=== PATIENT | female | born 1945 | race Caucasian/White ===

== ENCOUNTER → 2017-10-02 | Outpatient (CLI) | payer MEDICARE, OTHER ==
--- NOTE | 2017-10-02 13:49 | REPMRS ---
Patient History The patient states she had a clinical breast exam in 07/07 Patient is postmenopausal and has history of other cancer at age 59. No known family history of cancer. Benign cyst aspiration. Took hormonal contraceptives for 15 years. Took unspecified hormones for 1 year. Digital Woman Screen Mammo: October 02, 2017 - Exam #: [id number] Bilateral CC and MLO view(s) were taken. Technologist: Aylin Teague, Technologist Prior study comparison: July 19, 2016, digital woman screen mammo performed at [facility]. June 14, 2015, digital woman screen mammo performed at [facility]. FINDINGS: There are scattered fibroglandular densities. There is a stable nodular opacity projecting in the upper outer quadrant on the right unchanged from September 22, 2013 prior radiographs. This measures 13 mm. There has been no change in the appearance of the mammogram from the prior studies. There is a mild amount of scattered fibroglandular density which is fairly symmetric. There is no interval development of dominant mass, architectural distortion, or clustered microcalcification suggestive of malignancy. ASSESSMENT: BI-RADS/ACR category 2 mammogram. Benign finding(s). Recommendation Routine screening mammogram in 1 year (for women over age 40). This mammogram was interpreted with the aid of an FDA-approved computer-aided dectection system. Electronically Signed By: Shiv Magdaleno MD 10/02/17 [id number]
== END ==
LOC: M WHC 12:56
PROVIDERS: ATTEND Physician Assistant
DX: Z12.31 Encounter for screening mammogram for malignant neoplasm of breast (principal)

== ENCOUNTER → 2018-10-07 | Outpatient (CLI) | payer MEDICARE, OTHER ==
--- NOTE | 2018-10-07 17:03 | REPMRS ---
Patient History The patient states she had a clinical breast exam in 07/2018. No known family history of cancer. Benign cyst aspiration. Took hormonal contraceptives for 15 years. Took unspecified hormones for 1 year. Digital Woman Screen Mammo: October 07, 2018 - Exam #: [id number] Bilateral CC and MLO view(s) were taken. Technologist: Tiff Carmichael, Technologist Prior study comparison: October 02, 2017, digital woman screen mammo performed at [facility]. July 19, 2016, digital woman screen mammo performed at [facility]. June 14, 2015, digital woman screen mammo performed at [facility]. FINDINGS: There are scattered fibroglandular densities. There is a stable nodular density projecting in the upper outer quadrant of the right breast unchanged from multiple prior mammography. There has been no change in the appearance of the mammogram from the prior studies. There is a mild amount of scattered fibroglandular density which is fairly symmetric. There is no interval development of dominant mass, architectural distortion, or clustered microcalcification suggestive of malignancy. 3-D tomosynthesis shows no additional findings. Assessment: BI-RADS/ACR category 2 mammogram. Benign finding(s). Recommendation Routine screening mammogram of both breasts in 1 year (for women over age 40). This patient's Lifetime Breast Cancer RIsk is estimated at 3.9 %. This mammogram was interpreted with the aid of an FDA-approved computer-aided dectection system. Electronically Signed By: Shiv Magdaleno MD 10/07/18 [id number]
--- NOTE | 2018-10-09 10:17 | DEXA ---
AP SPINE L1 - L4 1.254 0.5 2.2 LT FEMUR TOTAL 1.066 0.5 2.1 LT NECK 1.028 -0.1 1.7 RT FEMUR TOTAL 1.055 0.4 2.0 RT NECK 1.063 0.2 2.0 TOTAL BODY TOTAL OTHER COMMENTS: Normal bone densitometry of the spine and hips. The density of the spine has increased 2.0% since 04/05/2009. The density of the left hip has increased 0.1% since 04/05/2009. The density of the right hip has increased 4.1% since 04/05/2009. FOLLOW-UP: Recommendation for the next bone density exam: 5 years. MAIDA
== END ==
LOC: M WHC 15:23
PROVIDERS: ATTEND Physician Assistant
DX: Z12.31 Encounter for screening mammogram for malignant neoplasm of breast (principal); Z78.0 Asymptomatic menopausal state; Z92.89 Personal history of other medical treatment; Z92.0 Personal history of contraception; Z92.29 Personal history of other drug therapy

== ENCOUNTER → 2019-11-16 | Outpatient (CLI) | payer MEDICARE, OTHER ==
--- NOTE | 2019-11-16 12:05 | REPMRS ---
Patient History The patient states she had a clinical breast exam in July 2019.No known family history of cancer. Benign cyst aspiration. Took hormonal contraceptives for 15 years. Took unspecified hormones for 1 year. 3D TOMOSYNTHESIS WAS PERFORMED. [facility] lifetime risk for breast cancer is 3.6%. Digital Woman Screen Mammo: November 16, 2019 - Exam #: [id number] Bilateral CC and MLO view(s) were taken. Technologist: Ivania Fuentes, Technologist Prior study comparison: October 07, 2018, bilateral digital woman screen mammo performed at [facility]. October 02, 2017, digital woman screen mammo performed at [facility]. FINDINGS: There are scattered fibroglandular densities. There is a fairly symmetric fibroglandular pattern in both breasts. There has been no interval development of masses, areas of architectural distortion or clusters of microcalcifications typical of malignancy. Assessment: BI-RADS/ACR category 2 mammogram. Benign Findings. Recommendation Routine screening mammogram of both breasts in 1 year (for women over age 40). This mammogram was interpreted with the aid of an FDA-approved computer-aided dectection system. Electronically Signed By: Rosendo Berkowitz MD 11/16/19 1642
== END ==
LOC: M WHC 10:50
PROVIDERS: ATTEND Physician Assistant
DX: Z12.31 Encounter for screening mammogram for malignant neoplasm of breast (principal)

== ENCOUNTER → 2020-11-17 | Outpatient (CLI) | payer MEDICARE, OTHER ==
--- NOTE | 2020-11-17 10:57 | REPMRS ---
Patient History The patient states she had a clinical breast exam in 08/2020 No known family history of cancer. Benign cyst aspiration. Took hormonal contraceptives for 15 years. Took unspecified hormones for 1 year. Digital Woman Screen Mammo: November 17, 2020 - Exam #: [id number] Bilateral CC and MLO view(s) were taken. Technologist: Aylin Teague, Technologist Prior study comparison: November 16, 2019, bilateral digital woman screen mammo performed at [facility]. October 07, 2018, bilateral digital woman screen mammo performed at [facility]. October 02, 2017, digital woman screen mammo performed at [facility]. September 22, 2013, bilateral bilat screen digital mammo, performed at [facility] ([facility] April 07, 2010, bilateral screening mammogram, performed at [facility] ([facility]). FINDINGS: There are scattered fibroglandular densities. The [facility] volumetric breast density category is:B. There is a stable smoothly marginated 14 mm nodule projecting in the upper outer quadrant of the breast on the right unchanged from numerous prior mammograms dating back at least as far as 2009. There are some new benign dermal calcifications projecting in the right breast medially and inferiorly. There has been no other change in the appearance of the mammogram from the prior studies. There is a mild amount of scattered fibroglandular density which is fairly symmetric. There is no interval development of dominant mass, architectural distortion, or grouped microcalcification suggestive of malignancy. 3-D tomosynthesis shows no additional findings. Assessment: BI-RADS/ACR category 2 mammogram. Benign Findings. Recommendation Routine screening mammogram of both breasts in 1 year (for women over age 40). This patient's [facility] Lifetime Breast Cancer Risk is estimated at 3.4 %. This mammogram was interpreted with the aid of an FDA-approved computer-aided dectection system. Electronically Signed By: Shiv Magdaleno MD 11/17/20 [id number]
== END ==
LOC: M WHC 09:41
PROVIDERS: ATTEND Physician Assistant
DX: Z12.31 Encounter for screening mammogram for malignant neoplasm of breast (principal); Z92.0 Personal history of contraception; N63.11 Unspecified lump in the right breast, upper outer quadrant